=== PATIENT | male | born 1950 | race Caucasian/White ===

== ENCOUNTER 2018-12-09 17:30 | Emergency (ER) | payer MEDICARE, OTHER ==
[2018-12-09] MEDS ORDERED: ASPIRIN TABLET 325 MG TAB ONE (17:37)
[2018-12-09] MEDS ORDERED: NITROGLYCERIN 0.4 MG 25 EA TAB SL ONE ×2 (17:37→17:42)
[2018-12-09 17:40] VITALS: TEMP 97.7
[2018-12-09] MEDS ORDERED: SODIUM CHLORIDE 0.9% (FLUSH) 10 ML SYG IV PRN (17:42)
[2018-12-09] MEDS ORDERED: ASPIRIN TABLET 325 MG TAB PO ONE (17:42)
[2018-12-09] MEDS ORDERED: AMIODARONE HCL 150 MG/3 ML VIAL IVPB ONE (17:47)
[2018-12-09] MEDS ORDERED: AMIODARONE IV (LOAD) 150 MG in DEXTROSE 5% 100ML 100 ML IVPB ONE (17:48)
[2018-12-09] MEDS ORDERED: AMIODARONE IV (MAINT) 900 MG in DEXTROSE 5% (AVIVA) 500ML 500 ML IVPB SCH (17:50)
[2018-12-09] MEDS ORDERED: TENECTEPLASE 50 MG VIAL IV ONE (17:51)
[2018-12-09] MEDS ORDERED: TENECTEPLASE 50 MG VIAL ONE (17:51)
[2018-12-09] MEDS ORDERED: HEPARIN PREMIX 500 ML ONE (17:55)
[2018-12-09] MEDS ORDERED: HEPARIN SODIUM (PORCINE) 5,000 U/ML VIAL ONE (17:55)
[2018-12-09] MEDS ORDERED: AMIODARONE HCL 900 MG/18 ML VIAL IVPB ONE (18:02)
[2018-12-09] MEDS ORDERED: DEXTROSE 5% (AVIVA) 500ML 500 ML IVPB ONE (18:02)
--- NOTE | 2018-12-09 18:10 | ED.PDOC ---
History of Present Illness - General Chief Complaint: Chest Pain/AK Stated Complaint: Chest pain Time Seen by Provider: 12/09/18 17:57 Source: patient Exam Limitations: no limitations - History of Present Illness Initial Comments: Pt has had substernal chest pain with radiation to both arms x1 hr [employer]. Has had SOB but no nausea or diaphoresis. No hx of CAD . Has Hx of NIDDM but is taking no meds for that. 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 Denies: diaphoresis EENTM: States: no symptoms reported Respiratory: States: short of breath. Denies: cough Cardiology: States: chest pain, edema. Denies: syncope Gastrointestinal/Abdominal: Denies: abdominal pain, nausea, vomiting Genitourinary: States: no symptoms reported Musculoskeletal: States: no symptoms reported Skin: States: no symptoms reported Neurological: Denies: headache, numbness Endocrine: States: no symptoms reported Hematologic/Lymphatic: States: no symptoms reported Past Medical History (General) - Patient Medical History Hx Stroke: No Hx Congestive Heart Failure: No Hx Diabetes: Yes Surgical History: other - Vaccination History Hx Influenza Vaccination: No Hx Pneumococcal Vaccination: No - Social History Hx Tobacco Use: No Hx Alcohol Use: Yes - Rarely Family Medical History - Family History Father Family History: No Known Living Status: Physical Exam - Physical Exam General Appearance: Alert, Anxious, Obvious distress Eyes, Ears, Nose, Throat Exam: PERRL/EOMI, pharynx normal Neck: non-tender, full range of motion Respiratory: chest non-tender, lungs clear, normal breath sounds Cardiovascular/Chest: normal peripheral pulses, regular rate, rhythm, no edema Gastrointestinal/Abdominal: normal bowel sounds, non tender, soft Extremity: normal range of motion, non-tender, normal inspection, no pedal edema Neurologic: no motor/sensory deficits, alert, normal mood/affect, oriented x 3 Skin Exam: normal color, warm/dry Lymphatic: no adenopathy Progress - EKG/XRAY/CT EKG: Sinus, ST elevation - in lateral leads Comments: PVC's and PAC's, rate 78, SD 138, QRS 90, QTc 410 - Additional EKG/XRAY/Consults EKG #2: Sinus, ST elevation - INFERIOR AND LATERAL WITH RECIPROCAL CHANGES IN ANTERIOR LEADS Comments: Rate 86, SD 146, QRS 98, QTc 437 Departure - Departure Clinical Impression: Acute inferior myocardial infarction, Ventricular tachycardia seen on refining supervisor Disposition: Transfer to Hospital Departure Forms: ED Discharge - Pt. Copy, Patient Portal Self Enrollment Referrals: Kevin Gil MD [Primary Care Provider] - 1-2 Weeks Home Medications: Ambulatory Orders Metformin HCl [Glucophage] 1,000 mg PO BID 05/15/15 RX: Glipizide 10 mg PO DAILY 05/15/15 Critical Care Note - Critical Care Note Total Time (mins): 45 Comments: event: chest pain findings: Elevations of ST's inferior leads on EKG, run of V.Tach on monitor actions: AK activation, TNKase and heparin iv, amiodarone iv bolus and drip, consultation with Dr Leigh, cardiology at [facility], transfer of Pt to [facility] systems at risk: cardiovascular Transfer to Outside Facility - Transfer Information Accepting Provider:: Dr Fall Accepting Facility: [facility] 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
[2018-12-09] MEDS ORDERED: HEPARIN PREMIX 25,000 UNITS in PREMIX BAG 1 BAG IVS SCH (18:15)
--- NOTE | 2018-12-09 18:20 | RAD ---
EXAM DESCRIPTION: Chest,1 View CLINICAL HISTORY: chest pain COMPARISON: None available TECHNIQUE: AP portable chest FINDINGS: The lungs are clear. There is no infiltrate or effusion. The heart is normal size. IMPRESSION: Normal portable chest Electronically signed by: Nando Goodwin MD 12/09/2018 6:19 PM CORPORATE SCHEDULER
[2018-12-09] MEDS ORDERED: MAGNESIUM SULFATE PREMIX 2GM 2 GM in PREMIX BAG 1 BAG IVPB ONE (18:26)
[2018-12-09] MEDS ORDERED: MAGNESIUM SULFATE PREMIX 2GM 50 ML IVPB ONE (18:28)
[2018-12-09 19:08] VITALS: BP 134/74; O2SAT 96
== END 2018-12-09 19:08 | disposition short-term general hospital (02) ==
LOC: ER 17:30
DX: I21.19 ST elevation (STEMI) myocardial infarction involving other coronary artery of inferior wall (principal); R00.0 Tachycardia, unspecified; E11.9 Type 2 diabetes mellitus without complications
CPT/HCPCS: 36415; 71045; 80048; 82550; 82553; 83880; 84484; 85025; 85610; 85730; 93005; J0282; J1644; J3101; J3475; J7060

== ENCOUNTER → 2019-01-18 | Outpatient (CLI) | payer MEDICARE, OTHER | LOC: GMAE 10:24 | PROVIDERS: ATTEND Family Medicine | DX: I10 Essential (primary) hypertension (principal); Z12.5 Encounter for screening for malignant neoplasm of prostate | CPT/HCPCS: 84443; G0103 ==

== ENCOUNTER → 2019-02-21 | Outpatient (CLI) | payer MEDICARE, OTHER | LOC: GMAE 11:50 | PROVIDERS: ATTEND Family Medicine | DX: R11.0 Nausea (principal) ==

== ENCOUNTER → 2020-02-22 | Outpatient (CLI) | payer MEDICARE, OTHER | LOC: GMAE 11:14 | PROVIDERS: ATTEND Family Medicine | DX: Z12.5 Encounter for screening for malignant neoplasm of prostate (principal); I10 Essential (primary) hypertension; E78.2 Mixed hyperlipidemia; E11.9 Type 2 diabetes mellitus without complications | CPT/HCPCS: 84443; G0103 ==